=== PATIENT | male | born 1960 | race Caucasian/White ===

== ENCOUNTER 2020-06-10 09:32 | Emergency (ER) | payer BC, SELFPAY ==
[2020-06-10] VITALS (8 sets, daily range): BP systolic 131–205; BP diastolic 56–96; PULSE 78–98; RESP 17–20; TEMP 36.9; O2SAT 94–99
--- NOTE | ~2020-06-10 | XR_ITS ---
EXAMINATION: XR chest 1V portable EXAM DATE: 06/10/2020 10:22 INDICATION: cough, wheezing TECHNIQUE: Portable AP frontal chest x-ray was obtained. Comparison is made to prior examination from 06/18/2018. FINDINGS: The lungs are clear. There are no pleural effusions. Cardiac silhouette is prominent but magnified on this AP technique. There is no pneumothorax suspected. The bones and soft tissues are unremarkable. IMPRESSION: No acute cardiopulmonary findings. Reviewed, dictated and finalized at location A. NESS PROJECT MANAGER
--- NOTE | 2020-06-10 09:42 | ECG_ITS ---
Measurements Intervals [place] Rate: 92 P: 43 NE: 168 QRS: 30 QRSD: 86 T: 59 QT: 344 QTc: 426 Interpretive Statements SINUS RHYTHM EARLY PRECORDIAL R/S TRANSITION BASELINE ARTIFACT- I, II, III, AVR, AVL, AVF, V1-V3 BORDERLINE ECG Electronically Signed On 06-10-2020 15:05:37 ROUTE CDL DRIVER by García Allen D.O.
--- NOTE | 2020-06-10 09:42 | ED.SOB ---
HPI - SOB/Dyspnea General Chief Complaint: Shortness of Breath/Dyspnea Stated Complaint: sob, cough Time Seen by Provider: 06/10/20 09:41 Source: patient Mode of arrival: ambulatory Limitations: no limitations History of Present Illness HPI Narrative: Patient is a 60-year-old male who presents for evaluation of cough, shortness of breath and chest pain. Patient states he has had increasing shortness of breath with productive cough over the past 24 hours, with chest tightness beginning around 3 in the morning. Patient states that the tightness in his chest does not radiate, he feels it in the center of his chest without jaw, arm or shoulder pain. No associated fever or diaphoresis. No nausea or vomiting. Patient has no idea if he has any history of high blood pressure or high cholesterol, he states he feels like he only goes to the doctor when he needs to but states it has been over a year since he has seen his primary care physician Dr. Gonzalez. He denies any history of COPD, states he smokes cigarettes here and there. He denies leg swelling or leg pain. No recent sick contacts that he knows of. He denies taking any medication on a daily basis. Related Data Allergies Allergy/AdvReac Type Severity Reaction Status Date / Time No Known Allergies Allergy Unknown Verified 06/10/20 09:42 Review of Systems Review of Systems: Narrative: CONSTITUTIONAL: Denies fever, chills, or sweats. ENT: Reports mild rhinorrhea and congestion CARDIOVASCULAR: Reports chest tightness without palpitations or edema RESPIRATORY: Reports cough and shortness of breath GASTROINTESTINAL: Denies abdominal pain, nausea, vomiting, or diarrhea. GENITOURINARY: Denies dysuria or hematuria. SKIN: Denies rash or itching. MUSCULOSKELETAL: Denies back pain, joint pain, or myalgia. NEUROLOGIC: Denies headache, numbness, or weakness. [facility] Past Medical History Medical History (Updated 06/10/20 @ 13:18 by Isidra Ash MD) No pertinent past medical history Social History Social History (Updated 06/10/20 @ 09:52 by Isidra Ash MD) Smoking status: Current some day smoker Tobacco type: cigarettes Second hand tobacco smoke exposure: No Smoking end date: 06/15/96 Alcohol intake: current Gender identity (if verbalized by the patient): Male Exam Narrative: Exam Narrative: GENERAL: Awake, alert, sitting upright in bed, able to speak in full sentences only HEAD: Normocephalic, atraumatic. EYES: PERRLA and EOMI. ENT: Nares clear, no rhinorrhea or epistaxis. Mucous membranes moist. NECK: Supple. CHEST: Diffuse expiratory wheezing in all lung [place], mild tachypnea, able to speak in full sentences, no chasity respiratory distress HEART: Regular rate, sinus rhythm ABDOMEN:Non distended, non tender EXTREMITIES: Normal range of motion. No edema. SKIN: Warm, dry, no rash. NEURO:No focal deficits. Alert and oriented x3 Course Vital Signs Vital signs: Vital Signs Temperature 36.9 C 06/10/20 09:37 Pulse Rate 86 06/10/20 09:37 Respiratory Rate 20 06/10/20 09:37 Blood Pressure 205/96 H 06/10/20 09:37 Pulse Oximetry 97 06/10/20 09:37 Temperature 36.9 C 06/10/20 09:37 Pulse Rate 90 06/10/20 13:00 Respiratory Rate 20 06/10/20 13:00 Blood Pressure 144/79 H 06/10/20 13:00 Pulse Oximetry 94 06/10/20 13:00 MDM - SOB/Dyspnea MDM Narrative Medical decision making narrative: Patient presented for evaluation of wheezing and shortness of breath. At the time of assessment, ABCs are intact, vital signs notable for hypertension. Laboratory results show no leukocytosis. No acute kidney injury. No elevation in troponin. Chest x-ray without acute cardiopulmonary abnormality or evidence of pneumonia. Patient does not have any Covid type features. The wheezing appears consistent with possible asthma versus COPD, patient does have some intermittent smoking/tobacco use history. Patient was given a continuous DuoNeb treatment,
[2020-06-10] MEDS: methylPREDNISolone SOD SUCC 125 MG VIAL IV PUSH (09:51)
[2020-06-10] MEDS: MAGNESIUM SULF 2 GM/WATER 50ML 2 GM/50 ML BAG IVPB (09:51)
[2020-06-10 09:53] LABS: Basophils Absolute Auto 0.1 K/mm3 (0.0-0.1); Basophils Percent Auto 0.5 % (0.2-1.2); Eosinophils Absolute Auto 0.1 K/mm3 (0-0.3); Eosinophils Percent Auto 0.8 % (0-4.4); Hematocrit 43.4 % (42.0-52.0); Hemoglobin 14.5 g/dL (14.0-18.0); Immature Granulocyte Absolute 0.05 K/mm3 (0.00-0.031); Immature Granulocyte Percent A 0.5 % (0-0.5); Lymphocytes Absolute Auto 2.42 K/mm3 (0.9-3.2); Lymphocytes Percent Auto 24.1 % (18.3-44.2); Mean Corpuscular HGB Conc 33.4 g/dl (32-36); Mean Corpuscular Hemoglobin 31.3 pg (26-34); Mean Corpuscular Volume 93.5 fl (80-100); Mean Platelet Volume 9.4 fl (7.4-10.4); Monocytes Absolute Auto 0.8 K/mm3 (0.1-0.6); Monocytes Percent Auto 7.6 % (2.6-8.5); Neutrophils Absolute Auto 6.7 K/mm3 (1.3-6.7); Neutrophils Percent Auto 66.5 % (45.5-73.1); Platelet Count Result 265 k/mm3 (150-375); Red Blood Count 4.64 M/mm3 (4.6-6.20); Red Cell Distribution Width 12.6 % (11.5-14.5)
[2020-06-10 10:09] LABS: Anion Gap 7 mmol/L (8-16); Blood Urea Nitrogen 14 mg/dL (9-20); Calcium 9.2 mg/dL (8.4-10.2); Carbon Dioxide 29 mmol/L (22-30); Chloride 100 mmol/L (98-107); Estimated CRCL calculation 90 ml/min; Estimated Glomerular Filt Rate > 60; Glucose 107 mg/dL (75-110); Potassium 4.2 mmol/L (3.4-5.0); Sodium 136 mmol/L (137-145)
[2020-06-10 10:13] LABS: INR 0.9; Partial Thromboplastin Time 25.7 SECONDS (22.3-36.8); Prothrombin Time 12.7 Seconds (11.1-14.7)
[2020-06-10] MEDS: ALBUTEROL SULFATE NEB 2.5 MG/0.5 ML INH 10 MG INHALATION (10:23)
[2020-06-10] MEDS: IPRATROPIUM BR 0.02% INH SOLN 0.5 MG/2.5 ML VIAL 1 MG INHALATION (10:24)
[2020-06-10] MEDS: ASPIRIN 81 MG CHEWABLE TABLET 324 MG PO (10:34)
[2020-06-10 10:36] LABS: Alveolar/Arterial O2 Gradient 33.7 mmHg; Base Excess ABG -0.3 mEq/l (+/-2.0); Fractional Inspired Oxygen 21 %; HCO3 ABG 24.3 mEq/l (22.0-26.0); Methemoglobin ABG 0.1 %THb (0-1.5); Oxygen Content ABG 19.2 %vol (16.0-22.0); Oxygen Saturation ABG 93.9 % (95.0-100.0); PCO2 ABG 39.5 mmHg (35.0-45.0); PO2 ABG 68.7 mmHg (80.0-100.0); PO2 FiO2 Ratio Arterial Blood 3.27 %; Reduced Hemoglobin 5.9 %THb (0-5.0); Total Hemoglobin 14.7 g/dL (12.0-18.0); pH ABG 7.406 (7.350-7.450)
[2020-06-10 10:37] LABS: Device ROOM AIR; Site Drawn LEFT BRACHIAL
[2020-06-10 10:54] LABS: Troponin I < 0.012 ng/mL (0.000-0.034)
--- NOTE | 2020-06-10 11:29 | PC.NURSE ---
pt's partner [phone]
--- NOTE | 2020-06-10 11:57 | PC.NURSE ---
PT TOLERATED AMBULATORY PULSE OX. DENIES SOB OR PAIN. PT O2 SATURATION 95-99% ON ROOM AIR.
[2020-06-10 22:25] LABS: SARS-CoV-2 RNA PCR Negative
== END 2020-06-10 13:28 | disposition home or self-care (01) ==
PROVIDERS: Emergency Provider Emergency Medicine; PCP Internal Medicine
DX: J98.8 Other specified respiratory disorders (principal); R06.2 Wheezing; Z20.828 Contact with and (suspected) exposure to other viral communicable diseases; F17.210 Nicotine dependence, cigarettes, uncomplicated; R94.31 Abnormal electrocardiogram [ECG] [EKG]
CPT/HCPCS: 36415; 36600; 71045; 80048; 82375; 82805; 83050; 84484; 85025; 85610; 85730; 87635; 93005; 94640; 96365; 96375; 99284; A9270; C9803; J2930; J3475; U0003

== ENCOUNTER 2020-07-09 08:11 | Outpatient (CLI) | payer BC, SELFPAY ==
--- NOTE | ~2020-07-09 | NM_ITS ---
EXAMINATION: NM emerson stress w perfusion EXAM DATE: 07/09/2020 10:40 INDICATION: R06.02 - Shortness of breath. Ischemic chest pain. TECHNIQUE: Rest images were obtained following intravenous administration of 9.9 mCi Tc99m tetrofosmi n (Myoview). The patient was infused intravenously with Lexiscan (regadenoson). Then, X.X mCi Tc99m t etrofosmin (Myoview) was administered intravenously, and stress images were obtained. Data was recons tructed into short axis and horizontal and vertical long axis SPECT images. Gated SPECT images were a lso obtained. 29.7 There are no prior studies for comparison. FINDINGS: There is no definite reversible or fixed perfusion abnormality to suggest ischemia or infar ction. There is normal left ventricular wall motion. End diastolic volume: 92 mL. End-systolic volume: 31 mL. Left ventricular ejection fraction: 66%. IMPRESSION: 1. Normal myocardial perfusion at rest and during stress. 2. Left ventricular ejection fraction measuring 66%. Reviewed, dictated and finalized at location A. AZZO WORKER APPRENTICE
--- NOTE | 2020-07-09 08:18 | EST_ITS ---
Patient Info Name: Jaime Redd Age: 60 years : 1960 Gender: Male Ht: 66 in Wt: 250 lbs BSA: 2.35 m2 Exam Date: 07/09/2020 9:33 AM Exam Location: [facility] Stress Patient Status: Outpatient Admit Date: 07/09/2020 Staff Ordering Physician: Ruddy Smith PA-C Attending Provider: Ruddy Smith PA-C Exercise Technologist: Lashaun Morales RDCS Exercise Physician: García Allen DO Exam Type: CA stress emerson w NM Study Info Indications R06.02 - Shortness of breath A regadenoson stress test was performed. Summary 1. 1. Negative lexiscan stress test for ischemic ST changes by ECG criteria. 2. 2. Stable hemodynamics throughout the test. 3. 3. Nuclear scan to follow and will be reported separately. Please correlate with it. 4. 4. Patient informed of the above results. Protocol: Lexiscan Stress ECG Details Stage: REST Duration (min): 5 min : 34 sec HR (bpm): 79 SBP (mmHg): 137 DBP (mmHg): 77 Stage: REST Duration (min): 23 min : 13 sec HR (bpm): 80 SBP (mmHg): 137 DBP (mmHg): 77 Stage: STAGE 1 Duration (min): 1 min : 0 sec HR (bpm): 83 SBP (mmHg): 141 DBP (mmHg): 49 Stage: RECOVERY Duration (min): 1 min : 0 sec HR (bpm): 99 SBP (mmHg): 151 DBP (mmHg): 52 Stage: RECOVERY Duration (min): 2 min : 0 sec HR (bpm): 92 SBP (mmHg): 151 DBP (mmHg): 52 Stage: RECOVERY Duration (min): 3 min : 0 sec HR (bpm): 85 SBP (mmHg): 150 DBP (mmHg): 68 Stage: RECOVERY Duration (min): 4 min : 0 sec HR (bpm): 86 SBP (mmHg): 150 DBP (mmHg): 68 Stage: RECOVERY Duration (min): 5 min : 0 sec HR (bpm): 84 SBP (mmHg): 156 DBP (mmHg): 69 Stage: RECOVERY Duration (min): 6 min : 0 sec HR (bpm): 84 SBP (mmHg): 156 DBP (mmHg): 69 Stage: RECOVERY Duration (min): 6 min : 50 sec HR (bpm): 82 SBP (mmHg): 154 DBP (mmHg): 74 Rest HR: 80 bpm Peak HR: 102 bpm Rest Sys BP: 137 mmHg Peak Sys BP: 156 mmHg Max Pred HR: 160 bpm % Max Pred HR: 64 % Target HR: 136 bpm Max RPP: 15,912 bpm*mmHg Termination Reason: Completed protocol Cardiac Symptoms: Shortness of breath Total Time: 1 min : 0 sec Rest Real BP: 77 mmHg Peak Real BP: 69 mmHg Total Dose: 0.4 mg Resting ECG Sinus rhythm. Stress ECG No ST changes. Arrhythmias None. Report Signatures
== END 2020-07-09 08:12 | disposition home or self-care (01) ==
PROVIDERS: Family Provider Internal Medicine; PCP Internal Medicine; Visit Provider Physician Assistant
DX: R06.02 Shortness of breath (principal)
CPT/HCPCS: 78452; 93017; A9502; J2785

== ENCOUNTER 2020-10-02 09:07 | Outpatient (CLI) | payer BC, SELFPAY ==
--- NOTE | 2020-10-06 13:42 | WPDPFTINT ---
PFT Interpretation This PFT met all criteria for ATS standards and reproducibility FEV/FVC post bronchodilator 66% FEV1 55% or 1.89 L FVC 64% There was significant improvement in post bronchodilator FEV1 by 12% and 200 mL. TLC 80% RV 120% RV/TLC 49% DLCO 80% when adjusted for alveolar volume but not adjusted for hemoglobin Flow volume loops showed significant expiratory coving. Impression: Severe airflow obstruction with air trapping And good response to bronchodilator therapy. This pattern is most suggestive of asthma but other lung diseases cannot be ruled out. Clinical correlation is advised. PFT Procedure Performed PFT Procedure Performed Spirometry with Pre/Post Bronchodilator Plethysmography (Lung Vol) Diffusing Cap (DLCO) Flow Vol Loop
== END 2020-10-02 09:08 | disposition home or self-care (01) ==
PROVIDERS: PCP Internal Medicine; Visit Provider Internal Medicine
DX: R06.00 Dyspnea, unspecified (principal)
CPT/HCPCS: 94060; 94726; 94729

== ENCOUNTER 2022-10-27 09:21 | Emergency (ER) | payer BC, SELFPAY ==
--- NOTE | ~2022-10-27 | XR_ITS ---
EXAMINATION: XR knee RT 3V DATE: 10/27/2022 09:49 INDICATION: Right knee pain. TECHNIQUE: 3 views of right knee were obtained. COMPARISON: None. FINDINGS: Bone alignment is normal. No fracture. There is mild osteoarthritis of lateral and patellof emoral compartments characterized by tiny osteophytes. There is a moderate-sized knee joint effusion. There is prepatellar and superficial infrapatellar soft tissue swelling. IMPRESSION: 1. Mild right knee osteoarthritis. 2. Moderate-sized right knee joint effusion. Reviewed, dictated and finalized at location A.
--- NOTE | ~2022-10-27 | US_ITS ---
EXAMINATION:US venous doppler LE RT INDICATION:Right leg pain and swelling TECHNIQUE: Multiple grayscale, color flow and Doppler images of the right lower extremity deep venous systems were obtained and reviewed. COMPARISON:No prior studies for comparison. FINDINGS: The common femoral, superficial femoral and popliteal veins demonstrate normal respiratory variation, augmentation and compressibility. Color flow is also seen within the posterior tibial, pe roneal, greater saphenous and profunda veins. IMPRESSION: 1: No lower extremity deep venous thrombosis. Reviewed, dictated and finalized at location B.
[2022-10-27 09:24] VITALS: BP 147/86; PULSE 87; RESP 16; TEMP 36.8; O2SAT 97
--- NOTE | 2022-10-27 09:34 | ED.LOWEXIN ---
HPI - Extremity Injury (Lower) General Chief Complaint: Extremity Injury, Lower Stated Complaint: R leg pain Time Seen by Provider: 10/27/22 09:28 History of Present Illness HPI Narrative: Patient is a 62-year-old male here for evaluation of right knee pain x2 weeks. Patient states the pain is severe in nature, concentrated around his right anterior knee and up also his popliteal fossa but occasionally radiates distally. He is unsure if he had any injury to the knee, he has been moving heavy objects around the house but states he can typically do this without pain. States that today he is unable to stand due to the pain which brought him into the ED. He has been taking ibuprofen and Tylenol without relief of his symptoms. Said no fevers, chills, nausea, vomiting, back pain, urinary complaints. Related Data Allergies Allergy/AdvReac Type Severity Reaction Status Date / Time No Known Allergies Allergy Unknown Verified 10/27/22 09:26 Review of Systems Review of Systems: Gen.: Denies fevers or chills Eyes: Denies eye pain or visual change ENT: Denies congestion Respiratory: Denies shortness of breath or cough CV: Denies chest pain or palpitations GI: Denies abdominal pain nausea, emesis or diarrhea denies burning, urgency, frequency or hematuria Musculoskeletal: Reports right lower extremity pain Neuro: Denies numbness, tingling, weakness or focal weakness Skin: Denies rash Except as documented, all other systems reviewed and negative [facility] Past Medical History Medical History Acute bronchitis due to other specified organisms Cough Dietary counseling and surveillance (12/12/15) Dysuria Elevated blood pressure reading without diagnosis of hypertension Moderate persistent asthmatic bronchitis with acute exacerbation No pertinent past medical history Other dorsalgia Other fatigue Pure hypercholesterolemia, unspecified Urticaria Social History Social History Smoking status: Former smoker Tobacco type: cigarettes Second hand tobacco smoke exposure: No Smoking end date: 06/15/96 Alcohol intake: current Substance use: never Substance use type: does not use Gender identity (if verbalized by the patient): Male Exam Narrative: APPEARANCE: Uncomfortable appearing. Head: Normocephalic and atraumatic. EYES: PERRLA/EOMI, conjunctivae clear NOSE: No nasal drainage EARS: External ear normal in appearance THROAT: Oropharynx is clear. Mucous membranes are moist. NECK: Supple. No adenopathy, no masses. RESPIRATORY: Airway patent, respirations nonlabored. Clear to auscultation bilaterally, no rales, rhonchi, wheezing. CARDIOVASCULAR: 2+ DP PT pulses bilaterally. Regular rate and rhythm without murmurs, rubs, or gallops. ABDOMINAL: Normoactive bowel sounds. Soft, nontender, nondistended. No rebound tenderness or guarding. MUSCULOSKELETAL: There is tenderness to palpation along the right anterior patella and in the right popliteal fossa. There are palpable varicose veins in the popliteal fossa. Trace nonpitting edema to right lower extremity from the foot up to the knee. NEURO: Sensation intact to both feet. 5 out of 5 strength in both feet. Normal speech. No focal neurologic deficits. SKIN: Skin is warm and dry. No rashes. PSYCHIATRIC: Normal affect/mood.. Course Vital Signs Vital signs: Vital Signs Temperature 98.2 F 10/27/22 09:24 Pulse Rate 87 10/27/22 09:24 Respiratory Rate 16 10/27/22 09:24 Blood Pressure 147/86 H 10/27/22 09:24 Pulse Oximetry 97 10/27/22 09:24 Temperature 98.2 F 10/27/22 09:24 Pulse Rate 83 10/27/22 11:12 Respiratory Rate 18 10/27/22 11:12 Blood Pressure 162/83 H 10/27/22 11:12 Pulse Oximetry 98 10/27/22 11:12 MDM - Extremity Injury (Lower) MDM Narrative Medical decision making narrative: 62-year-old male here
--- NOTE | 2022-10-27 10:06 | PC.NURSE ---
Pt is at [facility]
[2022-10-27] MEDS: KETOROLAC 30 MG/ML VIAL (*BKC) IM (10:25)
[2022-10-27] MEDS: LIDOCAINE 5% PATCH 1 PATCH TRANSDERM (10:25)
[2022-10-27 11:12] VITALS: BP 162/83; PULSE 83; RESP 18; O2SAT 98
== END 2022-10-27 11:15 | disposition home or self-care (01) ==
PROVIDERS: Emergency Provider Physician Assistant; PCP Family Medicine
DX: M25.461 Effusion, right knee (principal); J45.909 Unspecified asthma, uncomplicated
CPT/HCPCS: 73562; 93971; 96372; 99284; A9270; J1885

== ENCOUNTER 2025-06-12 20:34 | Emergency (ER) | payer MEDICARE, OTHER, SELFPAY ==
[2025-06-12] VITALS (9 sets, daily range): BP systolic 151–223; BP diastolic 93–175; PULSE 103–114; RESP 20–28; O2SAT 93–100
--- NOTE | ~2025-06-12 | XR_ITS ---
XR chest 1V portable INDICATION:CP . REFERENCE: None FINDINGS: A single AP of the chest demonstrates normal heart size. The lungs are clear. There is no evidence of pneumothorax or pleural effusion. IMPRESSION: No acute pulmonary findings. Reviewed, dictated and finalized at location S. [facility] INSPECTOR
--- NOTE | 2025-06-12 20:36 | ECG_ITS ---
Test Date: 2025-06-12 20:44:05 Measurements Intervals [place] Rate: 93 P: 50 FL: 161 QRS: 5 QRSD: 106 T: 79 QT: 362 QTc: 451 Interpretive Statements SINUS RHYTHM ANTEROSEPTAL ST ELEVATION MYOCARDIAL INFARCT- ACUTE RECIPROCAL ST DEPRESSION IN HIGH LATERAL LEADS BASELINE ARTIFACT- I, II, III, AVR, AVL, AVF, V1-V6 ABNORMAL ECG No previous ECG available for comparison Electronically Signed On 06-12-2025 21:17:49 INDUSTRIAL SAFETY AND HEALTH SPECIALIST by García Allen D.O.
[2025-06-12 21:02] LABS: Hematocrit 48.2 % (42.0-52.0); Hemoglobin 16.7 g/dL (14.0-18.0); Immature Granulocyte Percent A 0.7 % (0-0.5); Lymphocytes Absolute Auto 1.59 K/mm3 (0.9-3.2); Mean Corpuscular HGB Conc 34.6 g/dl (32-36); Mean Corpuscular Hemoglobin 31.1 pg (26-34); Mean Corpuscular Volume 89.8 fl (80-100); Nucleated Red Blood Cells Absolute Auto 0.000 K/mm3 (0.0-0.012); Nucleated Red Blood Cells Perc 0.0 % (0.0-0.2); Platelet Count Result 390 k/mm3 (150-375); Red Blood Count 5.37 M/mm3 (4.6-6.20); White Blood Count 16.7 K/mm3 (4.5-10.0)
[2025-06-12] MEDS: ONDANSETRON INJ 4 MG/2 ML VIAL IV PUSH (21:03)
[2025-06-12] MEDS: HYDROmorphone HCL INJ (*CRX) 1 MG/ML SYR IV PUSH (21:03)
[2025-06-12] MEDS: NITROGLYCERIN SL 0.4 MG TABLET SUBLINGUAL (21:04)
[2025-06-12] MEDS: SODIUM CHLORIDE 0.9% IV 1,000 ML 999 ML (21:06)
[2025-06-12 21:13] LABS: Alanine Aminotransferase 30 U/L (6-50); Albumin Level 5.1 g/dL (3.5-5.1); Alkaline Phosphatase 132 U/L (38-126); Anion Gap 11 mmol/L (4-12); Aspartate Amino Transferase 175 U/L (17-59); Bilirubin,Total 1.0 mg/dL (0.2-1.3); Blood Urea Nitrogen 24 mg/dL (9-20); Calcium 10.9 mg/dL (8.4-10.2); Carbon Dioxide 23 mmol/L (22-30); Chloride 105 mmol/L (98-107); Estimated CRCL calculation 63 ml/min; Estimated Glomerular Filt Rate 57; Glucose 165 mg/dL (65-110); Lipase 43 U/L (23-300); Potassium 4.3 mmol/L (3.4-5.0); Sodium 139 mmol/L (137-145); Total Protein 9.7 g/dL (6.3-8.2)
--- NOTE | 2025-06-12 21:15 | ED_ITS ---
HPI - Chest Pain General Chief Complaint: Chest Pain Stated Complaint: Chest pain all day crushing Time Seen by Provider: 06/12/25 20:45 History of Present Illness HPI narrative: 65-year-old male with history of hypertension, obesity, smoking. Patient presents to the emergency room with crushing chest pain that started earlier today, resolved and then restarted again right before he got to the ER. patient is diaphoretic and clutching his chest. EKG obtained shows STEMI. Patient placed in the room to for resuscitation. Denies any cardiac history. Has had a stress test in 2020 that was unremarkable. Patient is diaphoretic, uncomfortable appearing and in pain. Subjective dyspnea. No nausea, vomiting, abdominal pain or back pain. No history of cardiac stents or ACS in the past. Related Data Allergies Allergy/AdvReac Type Severity Reaction Status Date / Time No Known Allergies Allergy Unknown Verified 06/12/25 20:36 Review of Systems 2 Review of Systems: As reviewed above in HPI All systems reviewed & are unremarkable except as noted in HPI and below PMFSH Past Medical History Medical History Acute bronchitis due to other specified organisms Cough Dietary counseling and surveillance (12/12/15) Dysuria Elevated blood pressure reading without diagnosis of hypertension Moderate persistent asthmatic bronchitis with acute exacerbation Other dorsalgia Other fatigue Pure hypercholesterolemia, unspecified Urticaria No pertinent past medical history Social History Social History Smoking status: Former smoker Tobacco type: cigarettes Second hand tobacco smoke exposure: No Smoking end date: 06/15/96 Alcohol intake: current Substance use: never Substance use type: does not use Gender identity (if verbalized by the patient): Male Exam 2 Narrative: GENERAL: ill-appearing, diaphoretic, clutching his chest in pain. HEAD: [Normocephalic, atraumatic.] EYES: [PERRLA and EOMI.] ENT: Nares clear, no rhinorrhea or epistaxis. Mucous membranes moist. NECK: Supple. CHEST: Clear to auscultation, tachypneic, no wheezing. HEART: 2+ peripheral pulses and warm extremities. Tachycardic rate and regular rhythm. ABDOMEN: Soft and nontender, nondistended. No rigidity or guarding. EXTREMITIES: Normal range of motion. [No edema.] SKIN: Warm, dry, no rash. NEURO: [No focal deficits]. Alert and oriented [x3.] PSYCH: [Normal mood and affect.] Course Vital Signs Vital signs: Vital Signs Pulse Rate 105 H 06/12/25 20:40 Respiratory Rate 20 06/12/25 20:40 Blood Pressure 175/106 H 06/12/25 20:40 Pulse Oximetry 99 06/12/25 20:40 Oxygen Delivery Room Air 06/12/25 20:40 Pulse Rate 103 H 06/12/25 21:37 Respiratory Rate 27 H 06/12/25 21:37 Blood Pressure 151/96 H 06/12/25 21:37 Pulse Oximetry 93 06/12/25 21:37 Oxygen Delivery Room Air 06/12/25 21:29 Oxygen Flow Rate 15 06/12/25 20:58 MDM MDM Narrative Medical decision making narrative: 65-year-old male with history of hypertension, obesity, smoking. Patient presents to the emergency room with crushing chest pain that started earlier today, resolved and then restarted again right before he got to the ER. patient is diaphoretic and clutching his chest. EKG obtained shows STEMI. Patient placed in the room to for resuscitation. Denies any cardiac history. Has had a stress test in 2020 that was unremarkable. Patient is diaphoretic, uncomfortable appearing and in pain. Subjective dyspnea. No nausea, vomiting, abdominal pain or back pain. No history of cardiac stents or ACS in the past. Patient is ill and uncomfortable appearing. Hypertensive 170/106. Tachycardic and tachypneic. Dyspneic and placed on non-rebreather. EKG confirms STEMI with the anterior leads V1 through V4 elevated with reciprocal depressions in 1, AVL, V5 and V6. Previous EKGs unremarkable. Patient was immediately given Dilaudid for pain, Zofran, fluids and heparin bolus after confirming STEMI. Spoke to our master naval parachutist over the phone who is in our center medical and lab director currently as they are on the table with other STEMI patient from earlier in the emergency department and not able to complete in a timely manner to take this patient so their recommendations are to transfer him to another center medical and lab director at this time. Spoke to the [facility] transfer system and was connected with Dr. Black from the [facility] Emergency Department. We did have a 3 way call with master naval parachutist Dr. Sanchez and informing them of patient's presentation with active STEMI and no capabilities of undergoing center medical and lab director here at [place] at this time. We were able to obtain a timely flight and transfer the patient for center medical and lab director at their facility so this was initiated and patient is accepted by the ER physician Dr. Black and master naval parachutist for transfer and center medical and lab director activation. Patient was placed on a nitro drip after his blood pressures started getting a more elevated despite sublingual nitro and pain control medications. Heparin drip started. Given Reglan for persistent nausea. Helicopter team has arrived to transport the patient. Spoke to the patient and family members regarding his heart attack and plan for transfer for definitive interventions and center medical and lab director activation and patient was successfully transferred at this time. Differential Diagnosis Differential Diagnosis: STEMI, ACS, AAS, PE Lab Data MDM Lab Attestation statement: I personally reviewed the patient's lab results. 06/12/25 20:53 06/12/25 20:53 Labs: Lab Results 06/12/25 Range/Units 20:53 WBC 16.7 H (4.5-10.0) K/mm3 RBC 5.37 (4.6-6.20) M/mm3 Hgb 16.7 (14.0-18.0) g/dL Hct 48.2 (42.0-52.0) % MCV 89.8 (80-100) fl MCH 31.1 (26-34) pg MCHC 34.6 (32-36) g/dl RDW 12.1 (11.5-14.5) % Plt Count 390 H (150-375) k/mm3 MPV 9.7 (7.4-10.4) fl Immature Gran % (Auto) 0.7 H (0-0.5) % Neut % (Auto) 83.5 H (45.5-73.1) % Lymph % (Auto) 9.5 L (18.3-44.2) % [place] % (Auto) 6.0 (2.6-8.5) % Eos % (Auto) 0.0 (0-4.4) % Baso % (Auto) 0.3 (0.2-1.2) % Lymph # (Auto) 1.59 (0.9-3.2) K/mm3 [place] # (Auto) 1.0 H (0.1-0.6) K/mm3 Eos # (Auto) 0.0 (0-0.3) K/mm3 Baso # (Auto) 0.1 (0.0-0.1) K/mm3 Abs Immat Gran (auto) 0.11 H (0.00-0.031) K/mm3 Absolute Neuts (auto) 14.0 H (1.3-6.7) K/mm3 Absolute Nucleated RBC 0.000 (0.0-0.012) K/mm3 Nucleated RBC % 0.0 (0.0-0.2) % PT 14.1 (11.1-14.7) Seconds INR 1.1 APTT 24.6 (22.3-36.8) Seconds Sodium 139 (137-145) mmol/L Potassium 4.3 (3.4-5.0) mmol/L Chloride 105 (98-107) mmol/L Carbon Dioxide 23 (22-30) mmol/L Anion Gap 11 (4-12) mmol/L BUN 24 H D (9-20) mg/dL Creatinine 1.27 (0.7-1.3) mg/dL Estim Creat Clear Calc 63 ml/min Estimated GFR 57 L (59 - ) Glucose 165 H (65-110) mg/dL Calcium 10.9 H (8.4-10.2) mg/dL Total Bilirubin 1.0 (0.2-1.3) mg/dL AST 175 H (17-59) U/L ALT 30 (6-50) U/L Alkaline Phosphatase 132 H (38-126) U/L Troponin I 10.400 H* (0.000-0.034) ng/mL Total Protein 9.7 H (6.3-8.2) g/dL Albumin 5.1 (3.5-5.1) g/dL Lipase 43 (23-300) U/L Imaging Data Attestation: I personally reviewed and interpreted this imaging study as follows: My impression: Impressions Chest X-Ray 06/12/25 21:06 IMPRESSION: No acute pulmonary findings. Radiologist's impression: ITS Impressions Chest X-Ray 06/12/25 21:06 IMPRESSION: No acute pulmonary findings. ECG Data EKG #1: Attestation: I personally reviewed and interpreted this ECG as follows: ECG completion date: 06/12/25 ECG completion time: 20:36 Prior ECG tracings: available for review Ischemic changes: acute STEMI tachycardia, sinus rhythm, no ectopy and ST elevation Critical Care Time Critical Care Time Critical Care Time: Yes Time Type: Intermittent Initial evaluation, discuss w/ involved parties, attempting to gather old records: 10 minutes Documenting medical record: 5 minutes Review of results (EKG's, labs, imaging): 5 minutes Serial repeat bedside evaluation: 10 minutes Discussing case with multiple memebers of the care team and consultants: 10 minutes Total Critical Care Time: 40 Discharge Plan Discharge Clinical Impression: STEMI (ST elevation myocardial infarction) Patient Disposition: Acute Care Hospital Condition: Critical Patient Language: Amharic Prescriptions: No Action fluticasone propionate [Flonase Allergy Relief] 50 mcg/actuation spray,suspension 1 spray intranasal BID Qty: 15.8 3RF Rx Instructions: administer into each nostril [id number] 3.5-10,000-1 mg/mL-unit/mL-% solution 4 drp otic (ear) Q6H Qty: 10 0RF Rx Instructions: affected ear cefuroxime axetil 500 mg tablet 500 mg PO Q12H Qty: 20 0RF azelastine 137 mcg (0.1 %) aerosol,spray 1 spray intranasal Q12H Qty: 30 3RF Rx Instructions: administer into each nostril albuterol sulfate [Ventolin HFA] 90 mcg/actuation HFA aerosol inhaler 2 inh INHALATION Q4-6H PRN (Reason: shortness of breath or wheezing) 10 Days Qty: 6.7 5RF budesonide-formoterol [Symbicort] 160-4.5 mcg/actuation HFA aerosol inhaler 2 puff inhalation Q12H Qty: 10.2 3RF montelukast 10 mg tablet 10 mg PO DAILY Qty: 90 1RF omeprazole 40 mg capsule,delayed release(DR/EC) 40 mg PO DAILY Qty: 30 0RF Follow-up/Referrals: Kimberli,Emelina hKan MD [Primary Care Provider] Time of Disposition: 21:24
[2025-06-12 21:16] LABS: INR 1.1; Prothrombin Time 14.1 Seconds (11.1-14.7)
[2025-06-12 21:17] LABS: Partial Thromboplastin Time 24.6 Seconds (22.3-36.8)
--- NOTE | 2025-06-12 21:23 | PC.NURSE ---
Reglan given by [employer].
[2025-06-12] MEDS: HEPARIN SOD/D5W 100 UNITS/ML 25,000 UNITS/250 ML BAG 10 UNITS IV CONT (21:25)
[2025-06-12] MEDS: NITROGLYCERIN/D5W 200 MCG/ML 50 MG/250 ML BTL IV CONT (21:25)
[2025-06-12 21:28] LABS: Troponin I 10.400 ng/mL (0.000-0.034)
== END 2025-06-12 21:32 | disposition short-term general hospital (02) ==
PROVIDERS: Emergency Provider Student in an Organized Health Care Education/Training Program; PCP Family Medicine
DX: I21.3 ST elevation (STEMI) myocardial infarction of unspecified site (principal); I10 Essential (primary) hypertension; E78.00 Pure hypercholesterolemia, unspecified; J45.40 Moderate persistent asthma, uncomplicated; Z87.891 Personal history of nicotine dependence; Z79.899 Other long term (current) drug therapy
CPT/HCPCS: 36415; 71045; 80053; 83690; 84484; 85025; 85610; 85730; 93005; 96374; 96375; 99285; A9270; J1171; J1644; J2305; J2405; J2765; J7030